=== PATIENT | male | born 1985 | race Caucasian/White ===

== ENCOUNTER 2016-12-16 20:55 | Emergency (ER) | payer OTHER ==
--- NOTE | 2016-12-17 05:21 | ED NURSING NOTES ---
Clinical Report - Nurses [facility] [address] [place] [address] 12/16/2016 20:55 Patient: PHILLIP GAUTAM TRIAGE Triage time 2100. Acuity: LEVEL 2. Chief Complaint: ALTERED MENTAL STATUS and CONFUSED and DISORIENTED and ACTING DIFFERENTLY. --21:19 Chris Schofield R.N. 21:13 12/16/16. BP: 151/85. HR: 118. RR: 20. O2 saturation: 97%. Temp: 98 F. Pain level now 0/10. --21:19 Chris Schofield R.N. BREATHALYZER: Breathalyzer (0.266). --21:55 Chris Schofield R.N. Weight: 68 kg stated. Height/Length: 66 inches Per Patient. BMI: 24.2. --21:18 Chris Schofield R.N. Allergies Nuts. --21:17 Chris Schofield R.N. History Arrived by EMS. Historian: patient. Accompanied by police. This started just prior to arrival. Unknown when patient was last known well. ( pt sent in invol by apd for intoxication in public, disoriented to place and time. unable to care for self. pt is not under arrest). 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 PAST MEDICAL HX: Unknown. SOCIAL HX: Heavy tobacco smoker- 1 pack per day. Heavy alcohol use; consumes a large amount of beer. FALL RISK ASSESSMENT: Fall risk assessment completed. No fall risk identified. NUTRITIONAL RISK ASSESSMENT: The nutritional risk assessment revealed no deficiencies. FUNCTIONAL ASSESSMENT: Functional assessment: no impairments noted. LEARNING NEEDS ASSESSMENT: The learning needs assessment revealed no barriers. SKIN INTEGRITY ASSESSMENT: Skin integrity risk assessment completed. No skin integrity risk identified. --21:19 Chris Schofield R.N. PROBLEMS: Alcohol Intoxication. Immunizations. --21:17 Chris Schofield R.N. Interventions ID band on patient. --21:19 Chris Schofield R.N. PHYSICAL ASSESSMENT GENERAL / NEURO / PSYCH: Alert. Appears in no acute distress. (intoxicated). The patient is disoriented to place, time and situation. Speech within normal limits. Patient appears well-nourished and neat and clean. HEENT: Pupils equal, round and reactive to light. RESPIRATORY: Respirations not labored. Breath sounds within normal limits. CVS: Capillary refill less than 2 seconds. GI / : Abdomen soft and nontender. SKIN: Skin is warm and dry. Normal skin turgor. --21:28 Chris Schofield R.N. NURSING PROGRESS NOTES Patient gowned. Head of bed elevated. Reassurance given. Patient identifiers checked. Side rails up x 2. Bed placed in lowest position. Brakes of bed on. --21:35 Chris Schofield R.N. 22:18 12/16/2016 NICOTINE Topical 21 mg. Applied to the right upper back. Allergies verified and confirmed 5 rights. --22:18 Chris Schofield R.N. Restraint Flowsheet Initial restraint assessment. 1 hour face to face restraint assessment. He has demonstrated behavior including imminent risk of harm to self or others that requires restraints. Alternatives to restraints have been attempted via patient teaching, provision of supervision by 1:1 observation, reality orientation by frequent reminding and redirection of behavior and addressing toileting needs; assessment for possible underlying medical problem. Alternative to restraints failed: patient inability to follow directions and displaying a lack of decision making ability (extremely intoxicated). Applied right and left wrist restraints and right and left ankle restraints. Observed by a nurse. Assessment: airway- patent; circulation- capillary refill is less than 2 seconds; mental status- patient is agitated and confused; skin- intact; behavior is violent. Restraints are properly applied. Interventions: unable to perform interventions at this time due to patient status. Restraint reevaluation: evaluated patient's immediate situation and reaction to intervention. --21:35 Chris Schofield R.N. DISPOSITION / DISCHARGE Departure time: 0530. No learning barriers present. Discharge instructions provided and reviewed with the patient. Reviewed warnings. Treatments reviewed. Reviewed diet. Activity restrictions reviewed. Patient verbalized understanding. Written instructions provided in [place]. The patient was discharged by the physician. He was discharged home and unaccompanied at time of discharge. He left the Emergency Department ambulatory and via bus. 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 ( pt provided 2 bus passes, scrub top and blanket to help facilitate getting home. pt request to "hang out until i can buy beer" refused and pt left premesis.). --05:53 Chris Schofield R.N. 05:51 12/17/16. BP: 144/88. HR: 88. RR: 18. O2 saturation: 0%. Temp: 98 F. --05:53 Chris Schofield R.N. 05:54 12/17/16. Pain level now 0/10. --05:54 Chris Schofield R.N. ( pt placed in locked 4point restraints upon arrival with ems/apd r/t pt violent on scene and en route from point of origin. order for restraints received from MD. upon MD initial eval within 1 hour of arrival restraints changed to seclusion only and hard/locking restraints removed at that time. trial successful and pt stayed in seclusion only until discharge.). --06:01 Chris Schofield R.N. Locked/Released at 12/17/2016 6:01 by Chris Schofield R.N.
--- NOTE | 2016-12-17 05:21 | ED NURSING NOTES ---
Clinical Report - Nurses [facility] [address] [place] [address] 12/16/2016 20:55 Patient: PHILLIP GAUTAM TRIAGE Triage time 2100. Acuity: LEVEL 2. Chief Complaint: ALTERED MENTAL STATUS and CONFUSED and DISORIENTED and ACTING DIFFERENTLY. --21:19 Chris Schofield R.N. 21:13 12/16/16. BP: 151/85. HR: 118. RR: 20. O2 saturation: 97%. Temp: 98 F. Pain level now 0/10. --21:19 Chris Schofield R.N. BREATHALYZER: Breathalyzer (0.266). --21:55 Chris Schofield R.N. Weight: 68 kg stated. Height/Length: 66 inches Per Patient. BMI: 24.2. --21:18 Chris Schofield R.N. Allergies Nuts. --21:17 Chris Schofield R.N. History Arrived by EMS. Historian: patient. Accompanied by police. This started just prior to arrival. Unknown when patient was last known well. ( pt sent in invol by apd for intoxication in public, disoriented to place and time. unable to care for self. pt is not under arrest). 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 PAST MEDICAL HX: Unknown. SOCIAL HX: Heavy tobacco smoker- 1 pack per day. Heavy alcohol use; consumes a large amount of beer. FALL RISK ASSESSMENT: Fall risk assessment completed. No fall risk identified. NUTRITIONAL RISK ASSESSMENT: The nutritional risk assessment revealed no deficiencies. FUNCTIONAL ASSESSMENT: Functional assessment: no impairments noted. LEARNING NEEDS ASSESSMENT: The learning needs assessment revealed no barriers. SKIN INTEGRITY ASSESSMENT: Skin integrity risk assessment completed. No skin integrity risk identified. --21:19 Chris Schofield R.N. PROBLEMS: Alcohol Intoxication. Immunizations. --21:17 Chris Schofield R.N. Interventions ID band on patient. --21:19 Chris Schofield R.N. PHYSICAL ASSESSMENT GENERAL / NEURO / PSYCH: Alert. Appears in no acute distress. (intoxicated). The patient is disoriented to place, time and situation. Speech within normal limits. Patient appears well-nourished and neat and clean. HEENT: Pupils equal, round and reactive to light. RESPIRATORY: Respirations not labored. Breath sounds within normal limits. CVS: Capillary refill less than 2 seconds. GI / : Abdomen soft and nontender. SKIN: Skin is warm and dry. Normal skin turgor. --21:28 Chris Schofield R.N. NURSING PROGRESS NOTES Patient gowned. Head of bed elevated. Reassurance given. Patient identifiers checked. Side rails up x 2. Bed placed in lowest position. Brakes of bed on. --21:35 Chris Schofield R.N. 22:18 12/16/2016 NICOTINE Topical 21 mg. Applied to the right upper back. Allergies verified and confirmed 5 rights. --22:18 Chris Schofield R.N. Restraint Flowsheet Initial restraint assessment. 1 hour face to face restraint assessment. He has demonstrated behavior including imminent risk of harm to self or others that requires restraints. Alternatives to restraints have been attempted via patient teaching, provision of supervision by 1:1 observation, reality orientation by frequent reminding and redirection of behavior and addressing toileting needs; assessment for possible underlying medical problem. Alternative to restraints failed: patient inability to follow directions and displaying a lack of decision making ability (extremely intoxicated). Applied right and left wrist restraints and right and left ankle restraints. Observed by a nurse. Assessment: airway- patent; circulation- capillary refill is less than 2 seconds; mental status- patient is agitated and confused; skin- intact; behavior is violent. Restraints are properly applied. Interventions: unable to perform interventions at this time due to patient status. Restraint reevaluation: evaluated patient's immediate situation and reaction to intervention. --21:35 Chris Schofield R.N. DISPOSITION / DISCHARGE Departure time: 0530. No learning barriers present. Discharge instructions provided and reviewed with the patient. Reviewed warnings. Treatments reviewed. Reviewed diet. Activity restrictions reviewed. Patient verbalized understanding. Written instructions provided in [place]. The patient was discharged by the physician. He was discharged home and unaccompanied at time of discharge. He left the Emergency Department ambulatory and via bus. 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 ( pt provided 2 bus passes, scrub top and blanket to help facilitate getting home. pt request to "hang out until i can buy beer" refused and pt left premesis.). --05:53 Chris Schofield R.N. 05:51 12/17/16. BP: 144/88. HR: 88. RR: 18. O2 saturation: 0%. Temp: 98 F. --05:53 Chris Schofield R.N. 05:54 12/17/16. Pain level now 0/10. --05:54 Chris Schofield R.N. ( pt placed in locked 4point restraints upon arrival with ems/apd r/t pt violent on scene and en route from point of origin. order for restraints received from MD. upon MD initial eval within 1 hour of arrival restraints changed to seclusion only and hard/locking restraints removed at that time. trial successful and pt stayed in seclusion only until discharge.). --06:01 Chris Schofield R.N. Locked/Released at 12/17/2016 6:01 by Chris Schofield R.N.
--- NOTE | 2016-12-17 05:21 | ED ORDER SUMMARY ---
..... Patient: PHILLIP GAUTAM OrderSheet [facility] VisitID: [id number] [address] [place] [address] 31y, M Registration Date/Time: 12/16/2016 ORDER SHEET Weight: 68.0 kg (stated) Allergies: Nuts GENERAL ORDERS: Urine Drug Screen Urgent (21:50 12/16/2016 Iliana Freitas) (Ack 21:54 TBergley) (21:54 Temo R.N.) Breathalyzer (21:50 12/16/2016 Iliana Freitas) (21:54 Temo R.N.) MEDICATION ORDERS: Nicotine Topical 21 mg (NOW) (22:17 12/16/2016 Temo R.N. verbal order read back to Iliana Freitas) (22:18 Temo R.N.) IV FLUIDS: ORDER SHEET NOTES: This document has not been locked and should not be saved in the medical record.
--- NOTE | 2016-12-17 05:21 | ED ORDER SUMMARY ---
..... Patient: PHILLIP GAUTAM OrderSheet [facility] VisitID: [id number] [address] [place] [address] 31y, M Registration Date/Time: 12/16/2016 ORDER SHEET Weight: 68.0 kg (stated) Allergies: Nuts GENERAL ORDERS: Urine Drug Screen Urgent (21:50 12/16/2016 Iliana Freitas) (Ack 21:54 TBergley) (21:54 Temo R.N.) Breathalyzer (21:50 12/16/2016 Iliana Freitas) (21:54 Temo R.N.) MEDICATION ORDERS: Nicotine Topical 21 mg (NOW) (22:17 12/16/2016 Temo R.N. verbal order read back to Iliana Freitas) (22:18 Temo R.N.) IV FLUIDS: ORDER SHEET NOTES: This document has not been locked and should not be saved in the medical record.
--- NOTE | 2016-12-17 05:21 | ED CLINICAL REPORT ---
Clinical Report - Physicians/Mid Levels [facility] [address] [place] [address] 12/16/2016 20:55 Patient: PHILLIP GAUTAM *This is a preliminary document and is subject to change Time Seen: 21:05; initial patient contact. Arrived- Police present. Historian- patient. History limited by intoxication. Physical Exam limited by intoxication. HISTORY OF PRESENT ILLNESS Chief Complaint: AGITATED and BIZARRE BEHAVIOR. Does not want detox. Symptoms started today. Duration of substance abuse- several years. Substances abused: Alcohol. Last drink just prior to arrival. Mentioned to PD that he wanted to kill himself after they picked him up. No seizure, hallucinations or suicidal thoughts. He has been confused and agitated. Has not been depressed. The symptoms are described as severe. No injuries noted. Similar symptoms previously: Several times. Recent medical care: Not recently seen/assessed. REVIEW OF SYSTEMS No headache, difficulty breathing, alteration in mental status, head injury or suicidal thoughts. All systems otherwise negative, except as recorded above. PAST HISTORY Alcoholism. Medications: None. Allergies: Nuts. SOCIAL HISTORY Current every day smoker. Heavy alcohol use. Last drink was just prior to arrival. Patient is a longstanding alcoholic. No drug use. Has place to stay. ADDITIONAL NOTES The nursing notes have been reviewed with agreement regarding the chief complaint, PMH and patient medications and allergies. PHYSICAL EXAM Vital Signs: 12/16/2016 21:13 BP: 151/85. HR: 118. RR: 20. O2 saturation: 97%. Temp: 98 F. Have been reviewed. Hypertensive. Tachycardic. Respiratory rate normal. Temperature normal. Oxygen saturation normal. Appearance: Alert. No acute distress. Alert. The patient's speech is slurred and odor of alcohol is present. Head: Head atraumatic. ENT: Airway intact. Moist mucous membranes. Neck: Normal inspection. CVS: Normal heart rate and rhythm. Heart sounds normal. Respiratory: No respiratory distress. Breath sounds normal. Psych: Oriented X 3. Mood and affect normal. Speech normal. Cognition normal. Thought process and content normal. Insight and judgement normal. (Psych exam after breathalizer .143 and able to hold a conversation. Pt states no suicidal thoughts, states he said it due to him being extremely intoxicated.). LABS, X-RAYS, AND EKG Laboratory Tests: Urine Drug Screen: (FADY: 12/16/2016 21:25) ( MsgRcvd 12/16/2016 22:24) Final results Test Result Flag Units (Reference) AMPHETAMINE/METHAMPHETAMINE NEGATIVE (NEGATIVE) BARBITURATE NEGATIVE (NEGATIVE) BENZODIAZEPINE NEGATIVE (NEGATIVE) CANNABINOID POSITIVE H (NEGATIVE) COCAINE NEGATIVE (NEGATIVE) ECSTASY NEGATIVE (NEGATIVE) METHADONE NEGATIVE (NEGATIVE) OPIATE NEGATIVE (NEGATIVE) The urine drug screen is a qualitative screening test fordrug overdose and abuse. All screen results should beconsidered as presumptive.Drugs screened for are as follows:BenzodiazepinesCocaineAmphetamines/MetamphetaminesTHC (Tetrahydrocannabinol)OpiatesBarbituratesEcstasyMethadonePositive results are unconfirmed. For confirmation, notifythe lab for the specimen to be sent to the reference lab.All confirmations must be performed by a differentmethodology.The ingestion of natural herbal and plant productscontaining Ephedra/Ephedra metabolites can produce in urineone or more substances capable of cross reacting withamphetamine/methamphetamine immunoassays. These testsprovide a preliminary result only. A more specificalternative chemical method must be used to obtain aconfirmed analytical result. . Paul Deleon Dr.
--- NOTE | 2016-12-17 06:01 | ED DISCHARGE INSTRUCTIONS ---
Patient: PHILLIP GAUTAM General Instructions [facility] VisitID: [id number] [address] [place] [address] 31y, M Registration Date/Time: 12/16/2016 Uncomplicated alcohol intoxication with alcohol dependence. INSTRUCTIONS No alcohol. Seek medical help to quit drinking. Follow-up with: [facility], , , [address], , [place], [id number] Follow up in about four. Call for an appointment. ADDITIONAL INFORMATION Alcohol Intoxication Alcohol intoxication occurs when you drink alcohol faster than your liver can remove it from your system. Alcohol intoxication affects your judgment and coordination. Very high blood alcohol levels can cause coma, very slow breathing and even . If you drink alcohol every day, this may gradually cause permanent damage to your liver, brain, heart, pancreas and other organs. Alcohol use during may cause permanent damage to the growing baby. Home Care: Do not drink any more alcohol. DO NOT DRIVE until all effects of the alcohol have worn off. Get lots of rest over the next few days. Drink plenty of water and other non-alcoholic liquids. Try to eat regular meals. If you have been drinking heavily on a daily basis, you may go through alcohol withdrawl. This is also called the shakes or DTs. The usual symptoms last 3 to 4 days and may include nervousness, shakiness, nausea, sweating or sleeplessness. During this time, it is best that you stay with family or friends who can help and support you. You can also admit yourself to a residential detox program. If your symptoms are severe, contact your doctor for medicines to help. Follow Up: If alcohol is causing a problem in your life, these and other organizations can help you: Alcoholics Anonymous offers support through a self-help fellowship. There are no dues or fees. See the Yellow Pages and call for time and place of meetings. www.aa.org [employer] offers support to families of alcohol users. 366.678.8855 www.al-anon.org National [place] On Alcoholism And Drug Dependence 000-989-7962 www.ncadd.org There are also inpatient or residential alcohol detox programs. Check the Internet or phonebook Yellow Pages under Drug Abuse & Treatment Centers. Get Prompt Medical Attention if any of the following occur: there) You have been given the following additional information: Alcohol Intoxication (Electronically signed by Paul Deleon Dr. 12/17/2016 5:44)
--- NOTE | 2016-12-17 06:01 | ED DISCHARGE INSTRUCTIONS ---
Patient: PHILLIP GAUTAM General Instructions [facility] VisitID: [id number] [address] [place] [address] 31y, M Registration Date/Time: 12/16/2016 Uncomplicated alcohol intoxication with alcohol dependence. INSTRUCTIONS No alcohol. Seek medical help to quit drinking. Follow-up with: [facility], , , [address], , [place], [id number] Follow up in about four. Call for an appointment. ADDITIONAL INFORMATION Alcohol Intoxication Alcohol intoxication occurs when you drink alcohol faster than your liver can remove it from your system. Alcohol intoxication affects your judgment and coordination. Very high blood alcohol levels can cause coma, very slow breathing and even . If you drink alcohol every day, this may gradually cause permanent damage to your liver, brain, heart, pancreas and other organs. Alcohol use during may cause permanent damage to the growing baby. Home Care: Do not drink any more alcohol. DO NOT DRIVE until all effects of the alcohol have worn off. Get lots of rest over the next few days. Drink plenty of water and other non-alcoholic liquids. Try to eat regular meals. If you have been drinking heavily on a daily basis, you may go through alcohol withdrawl. This is also called the shakes or DTs. The usual symptoms last 3 to 4 days and may include nervousness, shakiness, nausea, sweating or sleeplessness. During this time, it is best that you stay with family or friends who can help and support you. You can also admit yourself to a residential detox program. If your symptoms are severe, contact your doctor for medicines to help. Follow Up: If alcohol is causing a problem in your life, these and other organizations can help you: Alcoholics Anonymous offers support through a self-help fellowship. There are no dues or fees. See the Yellow Pages and call for time and place of meetings. www.aa.org [employer] offers support to families of alcohol users. 173.807.5806 www.al-anon.org National [place] On Alcoholism And Drug Dependence 785-048-3777 www.ncadd.org There are also inpatient or residential alcohol detox programs. Check the Internet or phonebook Yellow Pages under Drug Abuse & Treatment Centers. Get Prompt Medical Attention if any of the following occur: there) You have been given the following additional information: Alcohol Intoxication (Electronically signed by Paul Deleon Dr. 12/17/2016 5:44)
--- NOTE | 2016-12-17 06:01 | ED MAR SUMMARY ---
..... Medication Administration Record [facility] [address] [place] [address] Patient: PHILLIP GAUTAM Visit ID: [id number] 31y, M Weight: 68.0 kg Height/Length: 66 in BMI: 24.2 ALLERGIES: Nuts Given 22:18 12/16/2016 Chris Schofield R.N. Medication Administered: NICOTINE [TOPICAL], Dose: 21 mg Topical. Medication Ordered: Nicotine Topical 21 mg (NOW).
--- NOTE | 2016-12-17 06:01 | ED MAR SUMMARY ---
..... Medication Administration Record [facility] [address] [place] [address] Patient: PHILLIP GAUTAM Visit ID: [id number] 31y, M Weight: 68.0 kg Height/Length: 66 in BMI: 24.2 ALLERGIES: Nuts Given 22:18 12/16/2016 Chris Schofield R.N. Medication Administered: NICOTINE [TOPICAL], Dose: 21 mg Topical. Medication Ordered: Nicotine Topical 21 mg (NOW).
--- NOTE | 2016-12-17 06:01 | ED MED RECONCILIATION SUMMARY ---
Patient: PHILLIP GAUTAM Medication Reconciliation Report [facility] VisitID: [id number] [address] [place] [place] [address] 31y, M Registration Date/Time: 12/16/2016 Weight: 68.0 kg Height/Length: 66 in. BMI: 24.2 ALLERGIES: Nuts The patient's Home Medications are listed below: NONE. The source(s) of the original Home Medication information: Not obtained. The following Medications were given to the patient in the Emergency Department: NICOTINE [TOPICAL] Topical 21 mg, administered: 12/16/2016 10:18:00 PM The following Medications were prescribed to the patient: None.
--- NOTE | 2016-12-17 06:01 | ED MED RECONCILIATION SUMMARY ---
Patient: PHILLIP GAUTAM Medication Reconciliation Report [facility] VisitID: [id number] [address] [place] [address] 31y, M Registration Date/Time: 12/16/2016 Weight: 68.0 kg Height/Length: 66 in. BMI: 24.2 ALLERGIES: Nuts The patient's Home Medications are listed below: NONE. The source(s) of the original Home Medication information: Not obtained. The following Medications were given to the patient in the Emergency Department: NICOTINE [TOPICAL] Topical 21 mg, administered: 12/16/2016 10:18:00 PM The following Medications were prescribed to the patient: None.
== END 2016-12-17 05:30 | disposition home or self-care (01) ==
LOC: ED SRH 20:55
DX: F10.220 Alcohol dependence with intoxication, uncomplicated (principal); F17.200 Nicotine dependence, unspecified, uncomplicated
CPT/HCPCS: 92760; 92761; 92762; 92763; 92764; 92765; 92766; 92767

== ENCOUNTER 2017-02-12 13:47 | Emergency (ER) | payer OTHER ==
--- NOTE | 2017-02-13 00:31 | ED NURSING NOTES ---
Clinical Report - Nurses [facility] [address] [place] [address] 02/12/2017 13:54 Patient: PHILLIP GAUTAM TRIAGE Triage time 1350. Acuity: LEVEL 3. Chief Complaint: AGITATED / AGGRESSIVE BEHAVIOR (Intoxicated). WENDIE COMA SCORE: Wendie Coma Scale: 15- eyes open spontaneously (4); best verbal response- oriented x 4 (5); best motor response- obeys commands (6). --14:23 Roseline Jin R.N. Weight: 74.8 kg stated. Height/Length: 68 inches Per Patient. BMI: 25.1. --14:21 Roseline Jin R.N. Medications None. --00:46 Kathia Villareal. Allergies Peanuts. --00:46 Kathia Villareal. History Historian: police. Accompanied by police. ( Arrived in [facility]'s custody, on stretcher with EMS. Yelling and screaming on arrival to ED. Involuntary per [facility]'s deputy. Found intoxicated and banging on neighbor's door. Pt screaming on arrival, "I'm going to cut you fucking bitches! I'm going to cut your fucking heads off you bitches." Unable to obtain VS due to patient's behavior and agitation.). 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 RR: 18. --14:23 Roseline Jin R.N. Interventions ID band on patient. To treatment room. --14:23 Roseline Jin R.N. PHYSICAL ASSESSMENT 14:25 02/12/17. To room via stretcher. GENERAL / NEURO / PSYCH: The patient smells of alcohol, appears agitated and is hostile and combative. HEENT: Mucous membranes are pink. RESPIRATORY: Respirations not labored. CVS: Capillary refill less than 2 seconds. SKIN: Skin is warm and dry. --14:25 Roseline Jin R.N. NURSING PROGRESS NOTES The plan of care for this patient has been created. Patient gowned. --14:26 Roseline Jin R.N. 14:06. Patient ID band checked for patient name and birthdate. Catheterized urine collected with return of clear urine; odor is normal; sample sent to lab for urinalysis and drug screen. Specimen labeled in the presence of the patient (diluted, pale, clear urine). --14:28 Roseline Jin R.N. ( patient urinated all over bedding, despite having urinal and throwing urinal. Patient clean up and bath x2 RNs x20 minutes. Pt bedding changed, gown changed, attends placed on patient. Pt agitated and yelling. When placing attends with 2nd RN, patient yelling, "are you guys trying to make a porno?!" Continues to be agitated and yelling, "Nurse! Doctor!"). --15:13 Roseline Jin R.N. ( Pt attempting to flip stretcher, yelling, "I should have cut their fucking heads off!. Ripping attends off. PD called for assistance in tightening restraints that he is attempting to rip off. Attends placed back on patient.). --15:29 Roseline Jin R.N. 15:51 02/12/17. ( Pt able to pull left upper extremity out of restraint and attempting to flip gurney. Security called. Extremity placed back in restraint by this RN, 2nd RN and security. Pt yelling, screaming, threatening staff). --15:51 Roseline Jin R.N. 16:25 02/12/17. --16:25 Roseline Jin R.N. 16:23 02/12/17. BP: 145/99. HR: 105. RR: 24. O2 saturation: 98% on room air. Temp: 98.2 F (oral). --16:25 Roseline Jin R.N. ( Pt states that his mother (Mel [phone]) would be willing to come get him. Called number provided by pt and left voicemail requesting return call.). --16:29 Roseline Jin R.N. 17:00 Patient contact made; patient states "I'm going to go to my neighbors house and burn it down, I'm going to make sure they are in it before I throw fire in the window". --17:07 Debbie Wilson, ER Tech1 17:50 02/12/17. BP: 154/104. HR: 96. RR: 20. O2 saturation: 97% on room air. Additional comments: Patient given gatorade . --17:52 Debbie Wilson, ER Tech1 18:11 02/12/17. ( restraints rotated by this RN, 2nd RN, MD and service technician. pt continues to be agitated. Asking if mom is coming to get him. This RN explained that voicemail was left but I have not received a return call from her. Pt yelling, "That bitch! Why won't she come get me? She's a piece of shit, my family they're all fucking losers."). --18:11 Roseline Jin R.N. 18:38 02/12/17. Patient hygiene performed: received complete bath. Changed patient gown, linens, incontinence pads and diaper. ( Pt removed attends, urinated all over linens and gurney. Pt cleanup x2 RNs and 2 techs. Continues to yell and threaten staff. Stating to 2nd RN, "You're a fucking bitch!"). --18:38 Roseline Jin R.N. Care transferred and report received (Ana RN). --19:17 Kathia Villareal ( Patient mother called per request of patient. Patients mother asked if she would be willing to come to black pickler her son. Patient mother refuses to come pick him up. Patient notified that his mother will not come to the hospital. Patient states, " I am going to punch my mom in the fucking face, just keep calling her and tell her to come here!"). --19:34 Kathia Villareal ( Patient offered PO food and fluids, patient refused at this time.). --19:39 Kathia Villareal 20:19 Breathalyzer 0.17. --20:19 Debbie Wilson, ER Tech1 20:49 Patient continues to yell and scream, using foul language and thrashing around on stretcher. --20:50 Debbie Wilson ER Tech1 ( Patient thrashing and shaking bed. Patient given PO food and fluids, patient takes bite and drinks water then throws water against the wall.). --20:56 Kathia Villareal ( Patient given more PO fluids and blankets). --21:37 Kathia Villareal ( POCT Breathalizyer .134). --21:51 Etta Winston ER Tech1 ( Restraint order renewed per provider. See paper restraint order and flow sheet). --22:04 Kathia Villareal 22:38 Patient resting quietly. --22:39 Debbie Wilson, ER Tech1 23:20 Breathalyzer 0.09. --23:20 Debbie Wilson, ER Tech1 23:20 02/12/17. BP: 143/97. HR: 90. RR: 16. O2 saturation: 95% on room air. --23:20 Debbie Wilson ER Tech1 ( Provider at bedside, patient given more food and fluids.). --23:43 Kathia Villareal ( Patient left arm restraint released per provider request). --23:43 Kathia Villareal 00:30 02/13/17. ( Restraints discontinued per provider request, patient alcohol within normal limits, patient cooperative and patients belongings returned to him.). --00:35 Kathia Villareal. DISPOSITION / DISCHARGE 00:37 02/13/17. Condition at departure: stable. The goals identified in the patient's plan of care were met. Learning barriers present. Ability to learn limited by poor cooperation. Written instructions provided in Maldivian. ( Patient states he does not want discharge paperwork. Patient willing to sign paperwork and perform walk test prior to discharge. Patient able to ambulate safely). The patient was discharged by the physician. He was discharged home and unaccompanied at time of discharge. He left the Emergency Department ambulatory and via bus. FALL RISK ASSESSMENT: Fall risk assessment completed. No fall risk identified. --00:37 Kathia Villareal 00:35 02/13/17. HR: deferred. RR: deferred. O2 saturation: deferred. Temp: deferred. Pain level now deferred. Additional comments: Patient refuses to have discharge vitals. --00:37 Kathia Villareal. Locked/Released at 02/13/2017 0:46 by Kathia Villareal,
--- NOTE | 2017-02-13 00:31 | ED ORDER SUMMARY ---
..... Patient: PHILLIP GAUTAM OrderSheet [facility] VisitID: [id number] [address] [place] [address] 31y, M Registration Date/Time: 02/12/2017 ORDER SHEET Weight: 74.8 kg (stated) Allergies: Peanuts GENERAL ORDERS: CBC w Diff Urgent (14:30 02/12/2017 Luis JEAN) (14:39 KWilliams R.N.) CMP Urgent (14:30 02/12/2017 Luis JEAN) (14:39 KWilliams R.N.) UA-Culture if indicated Urgent (14:30 02/12/2017 Luis JEAN) (14:30 KWilliams R.N.) Amylase Urgent (14:30 02/12/2017 Luis JEAN) (14:39 KWilliams R.N.) Lipase Urgent (14:30 02/12/2017 Luis JEAN) (14:47 ALawrence ER Tech1) (Ack 14:49 RKaruga) Urine Drug Screen Urgent (14:30 02/12/2017 Luis JEAN) (14:30 KWilliams R.N.) Ethyl Alcohol Urgent (14:30 02/12/2017 Luis JEAN) (14:39 KWilliams R.N.) MEDICATION ORDERS: IV FLUIDS: ORDER SHEET NOTES: [Electronically signed by Stefan Verde Dr. (00:39 02/13/2017)] [Electronically signed by Kathia Villareal (00:46 02/13/2017)] [Electronically signed by Geronimo Clark MD (10:12 02/13/2017)] [Electronically locked/signed by Kathia Villareal (00:46 02/13/2017)]
--- NOTE | 2017-02-13 00:31 | ED ORDER SUMMARY ---
..... Patient: PHILLIP GAUTAM OrderSheet [facility] VisitID: [id number] [address] [place] [address] 31y, M Registration Date/Time: 02/12/2017 ORDER SHEET Weight: 74.8 kg (stated) Allergies: Peanuts GENERAL ORDERS: CBC w Diff Urgent (14:30 02/12/2017 Luis JEAN) (14:39 KWilliams R.N.) CMP Urgent (14:30 02/12/2017 Luis JEAN) (14:39 KWilliams R.N.) UA-Culture if indicated Urgent (14:30 02/12/2017 Luis JEAN) (14:30 KWilliams R.N.) Amylase Urgent (14:30 02/12/2017 Luis JEAN) (14:39 KWilliams R.N.) Lipase Urgent (14:30 02/12/2017 Luis JEAN) (14:47 ALawrence ER Tech1) (Ack 14:49 RKaruga) Urine Drug Screen Urgent (14:30 02/12/2017 Luis JEAN) (14:30 KWilliams R.N.) Ethyl Alcohol Urgent (14:30 02/12/2017 Luis JEAN) (14:39 KWilliams R.N.) MEDICATION ORDERS: IV FLUIDS: ORDER SHEET NOTES: [Electronically signed by Stefan Verde Dr. (00:39 02/13/2017)] [Electronically signed by Kathia Villareal (00:46 02/13/2017)] [Electronically signed by Geronimo Clark MD (10:12 02/13/2017)] [Electronically locked/signed by Kathia Villareal (00:46 02/13/2017)]
--- NOTE | 2017-02-13 00:31 | ED CLINICAL REPORT ---
Clinical Report - Physicians/Mid Levels [facility] [address], [place] [address] 02/12/2017 13:54 Patient: PHILLIP GAUTAM Time Seen: 14:29. Arrived- By ambulance. Historian- patient and EMS personnel. History limited by poor cooperation, vague historian and intoxication. Physical Exam limited by intoxication, agitation and combativeness. HISTORY OF PRESENT ILLNESS Chief Complaint: INTOXICATED. Unknown as to when symptoms started. Substances abused: Last drink just prior to arrival. He is under influence in ED. patient apparently was on the porch of a neighbor and was screaming and saying threatening things. He was contacted and continued to be belligerent he was therefore brought in by EMS. He alleges that he has been drinking says he had "a fifth" of whiskey today. He also says that he smokes marijuana on a daily basis. As staff were drawing blood from him he also stated "you may find some acid or methamphetamines in there.". The patient has been severely agitated. REVIEW OF SYSTEMS Unobtainable due to patient's uncooperativeness. PAST HISTORY Problems: Alcohol Intoxication. SOCIAL HISTORY Regular heavy alcohol use. Under the influence in E.D. History of drug use: marijuana. FAMILY HISTORY Unable to obtain family medical history (uncooperative). ADDITIONAL NOTES The nursing notes have been reviewed. PHYSICAL EXAM Vital Signs: 02/12/2017 16:23 BP: 145/99. HR: 105. RR: 24. O2 saturation: 98%. Temp: 98.2 F. Have been reviewed. Appearance: Alert. He appears intoxicated, hostile and agitated and has ETOH on breath. He is restless and combative and appears unkempt. Head: Head atraumatic. Eyes: Pupils equal, round and reactive to light. ENT: Airway intact. Moist mucous membranes. Neck: Normal inspection. Neck supple. CVS: Normal heart rate and rhythm. Heart sounds normal. Respiratory: No respiratory distress. Breath sounds normal. Abdomen: Soft and nontender. No organomegaly. Back: Normal inspection. Skin: Skin warm and dry. Normal skin color. No rash. Normal skin turgor. Extremities: Extremities exhibit normal ROM. No calf tenderness. No lower extremity edema. Neuro: Alert. Severely altered mental status: labile, hostile and combative. Cranial nerves normal (as tested). No motor deficit. LABS, X-RAYS, AND EKG Laboratory Tests: UA-Culture if indicated: (FADY: 02/12/2017 14:06) ( [facility] 02/12/2017 14:53) Final results Test Result Flag Units (Reference) URINE COLOR STRAW URINE APPEARANCE CLEAR URINE GLUCOSE NEGATIVE (NEGATIVE) URINE BILIRUBIN NEGATIVE (NEGATIVE) URINE KETONE NEGATIVE (NEGATIVE) URINE SPECIFIC GRAVITY <= 1.005 L (1.010-1.030) URINE PH 6.0 (5.0-8.0) URINE PROTEIN NEGATIVE (NEGATIVE) URINE UROBILINOGEN 0.2 EU/dL (0.2-1.0) URINE NITRITE NEGATIVE (NEGATIVE) URINE BLOOD NEGATIVE (NEGATIVE) URINE LEUK ESTERASE NEGATIVE (NEGATIVE) URINE RBC NONE SEEN rbc/hpf (0-1) URINE WBC RARE wbc/hpf (0-1) URINE EPITHELIAL CELLS RARE EPI/hpf (0-5) URINE BACTERIA NONE SEEN (NONE SEEN) URINE COMMENT CULT NOT INDICATED URINE CULTURES ARE SET-UP BASED ON THE FOLLOWING CRITERIA:POSITIVE NITRITEPOSITIVE LEUKOCYTE ESTERASEGREATER THAN 10 WHITE BLOOD CELLSMODERATE (2+) OR GREATER BACTERIA CBC w Diff: (FADY: 02/12/2017 14:37) ( [facility] 02/12/2017 14:54) Final results Test Result Flag Units (Reference) WHITE BLOOD COUNT 10.6 K/uL (4.5-11.5) RED BLOOD COUNT 4.92 M/uL (4.50-5.90) HEMOGLOBIN 16.5 gm/dL (13.5-17.5) HEMATOCRIT 48.4 % (41.0-53.0) MEAN CELL VOLUME 98 fL (80-100) MEAN CORPUSCULAR HGB 34 pg (26-34) MEAN CORPUSCULAR HGB CONC 34 g/dL (31-37) RED CELL DISTRIBUTION WIDTH 13.8 % (11.6-14.8) PLATELET COUNT 317 K/uL (150-400) NEUTROPHIL % 56.9 % (50-75) LYMPH % 36.2 % (25-40) MONO % 5.5 % (3-14) EOSINOPHIL % 1.0 % (0-4) BASOPHIL % 0.4 % (0-2) Urine Drug Screen: (FADY: 02/12/2017 14:06) ( [facility] 02/12/2017 15:03) Final results Test Result Flag Units (Reference) AMPHETAMINE/METHAMPHETAMINE NEGATIVE (NEGATIVE) BARBITURATE NEGATIVE (NEGATIVE) BENZODIAZEPINE NEGATIVE (NEGATIVE) CANNABINOID POSITIVE H (NEGATIVE) COCAINE NEGATIVE (NEGATIVE) ECSTASY NEGATIVE (NEGATIVE) METHADONE NEGATIVE (NEGATIVE) OPIATE NEGATIVE (NEGATIVE) The urine drug screen is a qualitative screening test fordrug overdose and abuse. All screen results should beconsidered as presumptive.Drugs screened for are as follows:BenzodiazepinesCocaineAmphetamines/MetamphetaminesTHC (Tetrahydrocannabinol)OpiatesBarbituratesEcstasyMethadonePositive results are unconfirmed. For confirmation, notifythe lab for the specimen to be sent to the reference lab.All confirmations must be performed by a differentmethodology.The ingestion of natural herbal and plant productscontaining Ephedra/Ephedra metabolites can produce in urineone or more substances capable of cross reacting withamphetamine/methamphetamine immunoassays. These testsprovide a preliminary result only. A more specificalternative chemical method must be used to obtain aconfirmed analytical result. CMP: (FADY: 02/12/2017 14:37) ( [facility] 02/12/2017 15:18) Final results Test Result Flag Units (Reference) GLUCOSE 86 mg/dL (70-110) BUN 10 mg/dL (7-18) CREATININE 0.9 mg/dL (0.6-1.3) Estimated GFR >60 mL/min Estimated GFR- >60 mL/min Note: Persistent reduction over 3 months in eGFR<60 mL/min/1.73 m2 defines CKD. Patients with eGFR values>=60 mL/min/1.73 m2 may also have CKD if evidence ofpersistent proteinuria. Additional information may be foundat www.kidney.org. SODIUM 145 mmol/L (136-145) POTASSIUM 3.8 mmol/L (3.5-5.1) CHLORIDE 109 H mmol/L (98-107) CARBON DIOXIDE 18 L mmol/L (21-32) CALCIUM 8.9 mg/dL (8.5-10.1) TOTAL PROTEIN 7.6 g/dL (6.4-8.2) ALBUMIN 4.3 g/dL (3.3-5.0) BILIRUBIN, TOTAL 0.2 mg/dL (0.0-1.0) ALKALINE PHOSPHATASE 83 U/L (46-116) AST (SGOT) 26 U/L (15-37) ALT (SGPT) 28 U/L (12-78) LIPASE 159 U/L (73-393) AMYLASE 49 U/L (25-115) ETHYL ALCOHOL 348 H mg/dL (3-10) . PROGRESS AND PROCEDURES Course of Care: 21:07 02/12/17. the case was discussed with Dr. Gray at change of shift.. We reviewed the patient's history and physical examination findings as well as the results of his studies. He will follow-up with the patient and arrange an appropriate disposition for him. - Dr. Gray reports that he continued to observe the patient for several hours. The patient sobered up. They were able to remove his restraints. The patient reported to him that he was "an idiot" for his behavior and apologized. Apparently, he denied any malice or intention to bring arm to himself or others. He was subsequently discharged by Dr. Gray. - . Patient is stable. Old medical records reviewed. Disposition: Discharged. Condition: stable. CLINICAL IMPRESSION Substance abuse- alcohol. Alcohol intoxication. INSTRUCTIONS Stay with responsible adult family member (or other responsible adult). No alcohol. Seek medical help to quit drinking. Warnings: GENERAL WARNINGS: Return or contact your physician immediately if your condition worsens or changes unexpectedly, if not improving as expected, or if other problems arise. Follow-up: Follow up with your doctor. Call for the next available appointment. Understanding of the discharge instructions verbalized by patient. (Electronically signed by Geronimo Clark MD 02/13/2017 10:12) Time Seen: 1430. Arrived- By private vehicle. Historian- patient. HISTORY OF PRESENT ILLNESS Chief Complaint: INTOXICATED. Unknown as to when symptoms started. Duration of substance abuse- unknown. Substances abused: Last drink just prior to arrival. The patient has been agitated. Not paranoid. No hallucinations or suicidal thoughts. Has not been depressed. The symptoms are described as moderate. Injuries noted. No recent fall. Not assaulted. Similar symptoms previously: Many times. Recent medical care: Not recently seen/assessed. REVIEW OF SYSTEMS No headache, weakness, chest pain, black stools or numbness. No bloody stools, sore throat, difficulty breathing or skin abscess. All systems otherwise negative, except as recorded above. PAST HISTORY See nurses notes. SOCIAL HISTORY Smoker- current status unknown. Alcohol use. History of drug use. Has social support. Has place to stay. FAMILY HISTORY History of psychiatric problems (unknown). Negative. ADDITIONAL NOTES The nursing notes have been reviewed. PHYSICAL EXAM Vital Signs: 02/12/2017 16:23 BP: 145/99. HR: 105. RR: 24. O2 saturation: 98%. Temp: 98.2 F. Appearance: Alert. Oriented X3. The patient is agitated and odor of alcohol is present. (in 4 point restraints). Head: Head atraumatic. Eyes: Pupils equal, round and reactive to light. ENT: Normal ENT inspection. Airway intact. Moist mucous membranes. Pharynx normal. Neck: Normal inspection. Neck supple. CVS: Normal heart rate and rhythm. Heart sounds normal. Pulses normal. Respiratory: No respiratory distress. Breath sounds normal. Abdomen: Soft and nontender. No organomegaly. Skin: Skin warm and dry. Normal skin color. No rash. Normal skin turgor. Extremities: Extremities exhibit normal ROM. No lower extremity edema. Neuro: Alert. Oriented X 3. Altered mental status. Cranial nerves normal (as tested). No cerebellar findings. No motor deficit. No sensory deficit. Reflexes normal. (agitated. screaming staff people's names.). LABS, X-RAYS, AND EKG Laboratory Tests: UA-Culture if indicated: (FADY: 02/12/2017 14:06) ( [facility] 02/12/2017 14:53) Final results Test Result Flag Units (Reference) URINE COLOR STRAW URINE APPEARANCE CLEAR URINE GLUCOSE NEGATIVE (NEGATIVE) URINE BILIRUBIN NEGATIVE (NEGATIVE) URINE KETONE NEGATIVE (NEGATIVE) URINE SPECIFIC GRAVITY <= 1.005 L (1.010-1.030) URINE PH 6.0 (5.0-8.0) URINE PROTEIN NEGATIVE (NEGATIVE) URINE UROBILINOGEN 0.2 EU/dL (0.2-1.0) URINE NITRITE NEGATIVE (NEGATIVE) URINE BLOOD NEGATIVE (NEGATIVE) URINE LEUK ESTERASE NEGATIVE (NEGATIVE) URINE RBC NONE SEEN rbc/hpf (0-1) URINE WBC RARE wbc/hpf (0-1) URINE EPITHELIAL CELLS RARE EPI/hpf (0-5) URINE BACTERIA NONE SEEN (NONE SEEN) URINE COMMENT CULT NOT INDICATED URINE CULTURES ARE SET-UP BASED ON THE FOLLOWING CRITERIA:POSITIVE NITRITEPOSITIVE LEUKOCYTE ESTERASEGREATER THAN 10 WHITE BLOOD CELLSMODERATE (2+) OR GREATER BACTERIA CBC w Diff: (FADY: 02/12/2017 14:37) ( [facility] 02/12/2017 14:54) Final results Test Result Flag Units (Reference) WHITE BLOOD COUNT 10.6 K/uL (4.5-11.5) RED BLOOD COUNT 4.92 M/uL (4.50-5.90) HEMOGLOBIN 16.5 gm/dL (13.5-17.5) HEMATOCRIT 48.4 % (41.0-53.0) MEAN CELL VOLUME 98 fL (80-100) MEAN CORPUSCULAR HGB 34 pg (26-34) MEAN CORPUSCULAR HGB CONC 34 g/dL (31-37) RED CELL DISTRIBUTION WIDTH 13.8 % (11.6-14.8) PLATELET COUNT 317 K/uL (150-400) NEUTROPHIL % 56.9 % (50-75) LYMPH % 36.2 % (25-40) MONO % 5.5 % (3-14) EOSINOPHIL % 1.0 % (0-4) BASOPHIL % 0.4 % (0-2) Urine Drug Screen: (FADY: 02/12/2017 14:06) ( [facility] 02/12/2017 15:03) Final results Test Result Flag Units (Reference) AMPHETAMINE/METHAMPHETAMINE NEGATIVE (NEGATIVE) BARBITURATE NEGATIVE (NEGATIVE) BENZODIAZEPINE NEGATIVE (NEGATIVE) CANNABINOID POSITIVE H (NEGATIVE) COCAINE NEGATIVE (NEGATIVE) ECSTASY NEGATIVE (NEGATIVE) METHADONE NEGATIVE (NEGATIVE) OPIATE NEGATIVE (NEGATIVE) The urine drug screen is a qualitative screening test fordrug overdose and abuse. All screen results should beconsidered as presumptive.Drugs screened for are as follows:BenzodiazepinesCocaineAmphetamines/MetamphetaminesTHC (Tetrahydrocannabinol)OpiatesBarbituratesEcstasyMethadonePositive results are unconfirmed. For confirmation, notifythe lab for the specimen to be sent to the reference lab.All confirmations must be performed by a differentmethodology.The ingestion of natural herbal and plant productscontaining Ephedra/Ephedra metabolites can produce in urineone or more substances capable of cross reacting withamphetamine/methamphetamine immunoassays. These testsprovide a preliminary result only. A more specificalternative chemical method must be used to obtain aconfirmed analytical result. CMP: (FADY: 02/12/2017 14:37) ( [facility]sg[facility]cv[facility] 02/12/2017 15:18) Final results Test Result Flag Units (Reference) GLUCOSE 86 mg/dL (70-110) BUN 10 mg/dL (7-18) CREATININE 0.9 mg/dL (0.6-1.3) Estimated GFR >60 mL/min Estimated GFR- >60 mL/min Note: Persistent reduction over 3 months in eGFR<60 mL/min/1.73 m2 defines CKD. Patients with eGFR values>=60 mL/min/1.73 m2 may also have CKD if evidence ofpersistent proteinuria. Additional information may be foundat www.kidney.org. SODIUM 145 mmol/L (136-145) POTASSIUM 3.8 mmol/L (3.5-5.1) CHLORIDE 109 H mmol/L (98-107) CARBON DIOXIDE 18 L mmol/L (21-32) CALCIUM 8.9 mg/dL (8.5-10.1) TOTAL PROTEIN 7.6 g/dL (6.4-8.2) ALBUMIN 4.3 g/dL (3.3-5.0) BILIRUBIN, TOTAL 0.2 mg/dL (0.0-1.0) ALKALINE PHOSPHATASE 83 U/L (46-116) AST (SGOT) 26 U/L (15-37) ALT (SGPT) 28 U/L (12-78) LIPASE 159 U/L (73-393) AMYLASE 49 U/L (25-115) ETHYL ALCOHOL 348 H mg/dL (3-10) . PROGRESS AND PROCEDURES Course of Care: the patient is a 31-year-old male with past medical history is negative for alcohol abuse presenting for evaluation of altered mental status. Patient apparently was being aggressive to neighbors. Patient was monitored in the emergency departments with an elevated blood alcohol level. Patient was initially seen by the ongoing physician. Patient has been monitored in the psychiatric room in bed 16. Patient did needed 4 point restraints. Aggressive behaviors likely substance-induced. We'll monitor patient and revisitthe need for restraints on a as-needed basis. Procedure needed for escalating behavior and protection of staff as well as the patient's own safety. No pain or injury noted anywhere on examination or reportedly from the patient. Patient was reevaluated and found to be clinically sober. Had discussion with patient in regards to what it happened earlier today. Patient reports she does not know what happened. The patient was questioned regards tobehavior on neighbor's property. The patient reports that she wanted to "hang out "with one of the neighbors however the person he wanted to hang out with was not thereand somebody else was. Patient voiced homicidal or suicidal ideations. Patient reports that he does not have any money at this point in time and cannot drink anymore because of this. Patient reports that he willbe on his best behavior and return home. Patient is able to tolerate by mouth. Patient is eating a sandwich and a juice. Patient is steady on his feet. No slurred speech. Patient is not a danger to self or others. No homicidal or suicidal ideation or hallucinations/delusions. I discussed with patient his workup here in the emergency department including diagnosis, home care, follow-up, and return precautions. All questions have been answered. The patient expressed understanding of these instructions and was agreeable to them. Disposition: Discharged. Condition: good. CLINICAL IMPRESSION Adjustment disorder with disturbance of conduct (acute). Alcohol intoxication (acute). INSTRUCTIONS Warnings: GENERAL WARNINGS: Return or contact your physician immediately if your condition worsens or changes unexpectedly, if not improving as expected, or if other problems arise. Specifically return if pain, vomiting, bleeding, breathing difficulty or fever. Prescription Medications: Zofran (orally disintegrating tablets) 4 mg: take 1 orally. Dispense ten (10). No refill. Substitution is permissible. Follow-up: Return to the emergency department as needed. Follow up with your doctor in three days. Reason for referral: recheck today's concerns. Summary of care provided to patient via paper. Screening today revealed the patient's blood pressure to be in the normal range. The patient should follow up with a primary care provider for blood pressure management. Understanding of the discharge instructions verbalized by patient. (Electronically signed by Stefan Verde Dr. 02/13/2017 0:39)
--- NOTE | 2017-02-13 00:31 | ED NURSING NOTES ---
Clinical Report - Nurses [facility] [address] [place] [address] 02/12/2017 13:54 Patient: PHILLIP GAUTAM TRIAGE Triage time 1350. Acuity: LEVEL 3. Chief Complaint: AGITATED / AGGRESSIVE BEHAVIOR (Intoxicated). WENDIE COMA SCORE: Wendie Coma Scale: 15- eyes open spontaneously (4); best verbal response- oriented x 4 (5); best motor response- obeys commands (6). --14:23 Roseline Jin R.N. Weight: 74.8 kg stated. Height/Length: 68 inches Per Patient. BMI: 25.1. --14:21 Roseline Jin R.N. Medications None. --00:46 Kathia Villareal. Allergies Peanuts. --00:46 Kathia Villareal. History Historian: police. Accompanied by police. ( Arrived in [facility]'s custody, on stretcher with EMS. Yelling and screaming on arrival to ED. Involuntary per [facility]'s deputy. Found intoxicated and banging on neighbor's door. Pt screaming on arrival, "I'm going to cut you fucking bitches! I'm going to cut your fucking heads off you bitches." Unable to obtain VS due to patient's behavior and agitation.). Treatment CENTRAL SCHEDULER: HR: 86. RR: 18. --14:23 Roseline Jin R.N. Interventions ID band on patient. To treatment room. --14:23 Roseline Jin R.N. PHYSICAL ASSESSMENT 14:25 02/12/17. To room via stretcher. GENERAL / NEURO / PSYCH: The patient smells of alcohol, appears agitated and is hostile and combative. HEENT: Mucous membranes are pink. RESPIRATORY: Respirations not labored. CVS: Capillary refill less than 2 seconds. SKIN: Skin is warm and dry. --14:25 Roseline Jin R.N. NURSING PROGRESS NOTES The plan of care for this patient has been created. Patient gowned. --14:26 Roseline Jin R.N. 14:06. Patient ID band checked for patient name and birthdate. Catheterized urine collected with return of clear urine; odor is normal; sample sent to lab for urinalysis and drug screen. Specimen labeled in the presence of the patient (diluted, pale, clear urine). --14:28 Roseline Jin R.N. ( patient urinated all over bedding, despite having urinal and throwing urinal. Patient clean up and bath x2 RNs x20 minutes. Pt bedding changed, gown changed, attends placed on patient. Pt agitated and yelling. When placing attends with 2nd RN, patient yelling, "are you guys trying to make a porno?!" Continues to be agitated and yelling, "Nurse! Doctor!"). --15:13 Roseline Jin R.N. ( Pt attempting to flip stretcher, yelling, "I should have cut their fucking heads off!. Ripping attends off. PD called for assistance in tightening restraints that he is attempting to rip off. Attends placed back on patient.). --15:29 Roseline Jin R.N. 15:51 02/12/17. ( Pt able to pull left upper extremity out of restraint and attempting to flip gurney. Security called. Extremity placed back in restraint by this RN, 2nd RN and security. Pt yelling, screaming, threatening staff). --15:51 Roseline Jin R.N. 16:25 02/12/17. --16:25 Roseline Jin R.N. 16:23 02/12/17. BP: 145/99. HR: 105. RR: 24. O2 saturation: 98% on room air. Temp: 98.2 F (oral). --16:25 Roseline Jin R.N. ( Pt states that his mother (Mel [phone]) would be willing to come get him. Called number provided by pt and left voicemail requesting return call.). --16:29 Roseline Jin R.N. 17:00 Patient contact made; patient states "I'm going to go to my neighbors house and burn it down, I'm going to make sure they are in it before I throw fire in the window". --17:07 Debbie Wilson, ER Tech1 17:50 02/12/17. BP: 154/104. HR: 96. RR: 20. O2 saturation: 97% on room air. Additional comments: Patient given gatorade . --17:52 Debbie Wilson, ER Tech1 18:11 02/12/17. ( restraints rotated by this RN, 2nd RN, MD and pharmaceutical laboratory technician. pt continues to be agitated. Asking if mom is coming to get him. This RN explained that voicemail was left but I have not received a return call from her. Pt yelling, "That bitch! Why won't she come get me? She's a piece of shit, my family they're all fucking losers."). --18:11 Roseline Jin R.N. 18:38 02/12/17. Patient hygiene performed: received complete bath. Changed patient gown, linens, incontinence pads and diaper. ( Pt removed attends, urinated all over linens and gurney. Pt cleanup x2 RNs and 2 techs. Continues to yell and threaten staff. Stating to 2nd RN, "You're a fucking bitch!"). --18:38 Roseline Jin R.N. Care transferred and report received (Ana RN). --19:17 Kathia Villareal ( Patient mother called per request of patient. Patients mother asked if she would be willing to come to cigar packer and picker her son. Patient mother refuses to come pick him up. Patient notified that his mother will not come to the hospital. Patient states, " I am going to punch my mom in the fucking face, just keep calling her and tell her to come here!"). --19:34 Kathia Villareal ( Patient offered PO food and fluids, patient refused at this time.). --19:39 Kathia Villareal 20:19 Breathalyzer 0.17. --20:19 Debbie Wilson, ER Tech1 20:49 Patient continues to yell and scream, using foul language and thrashing around on stretcher. --20:50 Debbie Wilson ER Tech1 ( Patient thrashing and shaking bed. Patient given PO food and fluids, patient takes bite and drinks water then throws water against the wall.). --20:56 Kathia Villareal ( Patient given more PO fluids and blankets). --21:37 Kathia Villareal ( POCT Breathalizyer .134). --21:51 Etta Winston ER Tech1 ( Restraint order renewed per provider. See paper restraint order and flow sheet). --22:04 Kathia Villareal 22:38 Patient resting quietly. --22:39 Debbie Wilson, ER Tech1 23:20 Breathalyzer 0.09. --23:20 Debbie Wilson, ER Tech1 23:20 02/12/17. BP: 143/97. HR: 90. RR: 16. O2 saturation: 95% on room air. --23:20 Debbie Wilson ER Tech1 ( Provider at bedside, patient given more food and fluids.). --23:43 Kathia Villareal ( Patient left arm restraint released per provider request). --23:43 Kathia Villareal 00:30 02/13/17. ( Restraints discontinued per provider request, patient alcohol within normal limits, patient cooperative and patients belongings returned to him.). --00:35 Kathia Villareal. DISPOSITION / DISCHARGE 00:37 02/13/17. Condition at departure: stable. The goals identified in the patient's plan of care were met. Learning barriers present. Ability to learn limited by poor cooperation. Written instructions provided in Angolan. ( Patient states he does not want discharge paperwork. Patient willing to sign paperwork and perform walk test prior to discharge. Patient able to ambulate safely). The patient was discharged by the physician. He was discharged home and unaccompanied at time of discharge. He left the Emergency Department ambulatory and via bus. FALL RISK ASSESSMENT: Fall risk assessment completed. No fall risk identified. --00:37 Kathia Villareal 00:35 02/13/17. HR: deferred. RR: deferred. O2 saturation: deferred. Temp: deferred. Pain level now deferred. Additional comments: Patient refuses to have discharge vitals. --00:37 Kathia Villareal. Locked/Released at 02/13/2017 0:46 by Kathia Villareal,
--- NOTE | 2017-02-13 10:13 | ED MAR SUMMARY ---
..... Medication Administration Record [facility] [address], [place] [id number] Patient: PIHLLIP GAUTAM Visit ID: [id number] 31y, M Weight: 74.8 kg Height/Length: 68 in BMI: 25.1 ALLERGIES: Peanuts
--- NOTE | 2017-02-13 10:13 | ED MED RECONCILIATION SUMMARY ---
Patient: PHILLIP GAUTAM Medication Reconciliation Report [facility] VisitID: [id number] [address] [place] [address] 31y, M Registration Date/Time: 02/12/2017 Weight: 74.8 kg Height/Length: 68 in. BMI: 25.1 ALLERGIES: Peanuts The patient's Home Medications are listed below: NONE. The source(s) of the original Home Medication information: Not obtained. The following Medications were given to the patient in the Emergency Department: None. The following Medications were prescribed to the patient: Zofran (orally disintegrating tablets) 4 mg: take 1 orally. Dispense ten (10). No refill. Substitution is permissible. -- Stefan Verde Dr.
--- NOTE | 2017-02-13 10:13 | ED DISCHARGE INSTRUCTIONS ---
Patient: PHILLIP GAUTAM General Instructions [facility] VisitID: [id number] [place] [address] 31y, M Registration Date/Time: 02/12/2017 Substance abuse- alcohol. Alcohol intoxication. INSTRUCTIONS Stay with responsible adult family member (or other responsible adult). No alcohol. Seek medical help to quit drinking. Warnings: GENERAL WARNINGS: Return or contact your physician immediately if your condition worsens or changes unexpectedly, if not improving as expected, or if other problems arise. Follow-up: Follow up with your doctor. Call for the next available appointment. Understanding of the discharge instructions verbalized by patient. ADDITIONAL INFORMATION Alcohol Intoxication Alcohol intoxication occurs when you drink alcohol faster than your liver can remove it from your system. Alcohol intoxication affects your judgment and coordination. Very high blood alcohol levels can cause coma, very slow breathing and even . If you drink alcohol every day, this may gradually cause permanent damage to your liver, brain, heart, pancreas and other organs. Alcohol use during may cause permanent damage to the growing baby. Home Care: Do not drink any more alcohol. DO NOT DRIVE until all effects of the alcohol have worn off. Get lots of rest over the next few days. Drink plenty of water and other non-alcoholic liquids. Try to eat regular meals. If you have been drinking heavily on a daily basis, you may go through alcohol withdrawl. This is also called the shakes or DTs. The usual symptoms last 3 to 4 days and may include nervousness, shakiness, nausea, sweating or sleeplessness. During this time, it is best that you stay with family or friends who can help and support you. You can also admit yourself to a residential detox program. If your symptoms are severe, contact your doctor for medicines to help. Follow Up: If alcohol is causing a problem in your life, these and other organizations can help you: Alcoholics Anonymous offers support through a self-help fellowship. There are no dues or fees. See the Yellow Pages and call for time and place of meetings. www.aa.org [employer] offers support to families of alcohol users. 202.291.7027 www.al-anon.org National [place] On Alcoholism And Drug Dependence 108-034-9724 www.ncadd.org There are also inpatient or residential alcohol detox programs. Check the Internet or phonebook Yellow Pages under Drug Abuse & Treatment Centers. Get Prompt Medical Attention if any of the following occur: there) You have been given the following additional information: Alcohol Intoxication Stay with responsible adult family member (or other responsible adult). (Electronically signed by Geronimo Clark MD 02/13/2017 10:12) Adjustment disorder with disturbance of conduct (acute). Alcohol intoxication (acute). INSTRUCTIONS Warnings: GENERAL WARNINGS: Return or contact your physician immediately if your condition worsens or changes unexpectedly, if not improving as expected, or if other problems arise. Specifically return if pain, vomiting, bleeding, breathing difficulty or fever. Prescription Medications: Zofran (orally disintegrating tablets) 4 mg: take 1 orally. Dispense ten (10). No refill. Substitution is permissible. Follow-up: Return to the emergency department as needed. Follow up with your doctor in three days. Reason for referral: recheck today's concerns. Summary of care provided to patient via paper. Screening today revealed the patient's blood pressure to be in the normal range. The patient should follow up with a primary care provider for blood pressure management. Understanding of the discharge instructions verbalized by patient. ADDITIONAL INFORMATION Alcohol Intoxication Alcohol intoxication occurs when you drink alcohol faster than your liver can remove it from your system. Alcohol intoxication affects your judgment and coordination. Very high blood alcohol levels can cause coma, very slow breathing and even . If you drink alcohol every day, this may gradually cause permanent damage to your liver, brain, heart, pancreas and other organs. Alcohol use during may cause permanent damage to the growing baby. Home Care: Do not drink any more alcohol. DO NOT DRIVE until all effects of the alcohol have worn off. Get lots of rest over the next few days. Drink plenty of water and other non-alcoholic liquids. Try to eat regular meals. If you have been drinking heavily on a daily basis, you may go through alcohol withdrawl. This is also called the shakes or DTs. The usual symptoms last 3 to 4 days and may include nervousness, shakiness, nausea, sweating or sleeplessness. During this time, it is best that you stay with family or friends who can help and support you. You can also admit yourself to a residential detox program. If your symptoms are severe, contact your doctor for medicines to help. Follow Up: If alcohol is causing a problem in your life, these and other organizations can help you: Alcoholics Anonymous offers support through a self-help fellowship. There are no dues or fees. See the Yellow Pages and call for time and place of meetings. www.aa.org [employer] offers support to families of alcohol users. 275.577.2049 www.al-anon.org National [place] On Alcoholism And Drug Dependence 090-450-3782 www.ncadd.org There are also inpatient or residential alcohol detox programs. Check the Internet or phonebook Yellow Pages under Drug Abuse & Treatment Centers. Get Prompt Medical Attention if any of the following occur: there) Adjustment Disorder An adjustment disorder is a condition that results from having a hard time coping with the normal stresses of life. You may feel you have too much to do and cant get it all done. These feelings may be triggered by divorce, job loss, someone you know dying, or by a positive event like getting a new job or getting . These feelings may interfere with your relationships at home and at work. With this condition, it is common to feel sad, guilty, hopeless and restless. These feelings may continue for weeks or months. It can be helpful to identify what is causing the additional stress and takes steps to get extra support. If new stressful events do not occur, it is likely that you will start feeling better within six months. Home Care: If you have been given a prescription for medicine, take it as directed. It helps to talk about your feelings and thoughts with family or friends that understand and support you. Follow Up with your doctor or therapist as advised by our staff. Let them know if this condition lasts more than six months without sign of improvement. For more information, contact the National [place] on Mental Illness at 633-209-9987 or visit www.yelena.org. Get Prompt Medical Attention if any of the following occur: Worsening depression or anxiety Feeling out of control Thoughts of harming yourself or another Being unable to care for yourself Ondansetron Oral disintegrating tablet What is this medicine? ONDANSETRON (on JELLY se meka) is used to treat nausea and vomiting caused by chemotherapy. It is also used to prevent or treat nausea and vomiting after surgery. How should I use this medicine? These tablets are made to dissolve in the mouth. Do not try to push the tablet through the foil backing. With dry hands, peel away the foil backing and gently remove the tablet. Place the tablet in the mouth and allow it to dissolve, then swallow. While you may take these tablets with water, it is not necessary to do so. Talk to your aviation manager regarding the use of this medicine in children. Special care may be needed. What side effects may I notice from receiving this medicine? Side effects that you should report to your doctor or health care team assistant as soon as possible: allergic reactions like skin rash, itching or hives, swelling of the face, lips, or tongue breathing problems dizziness fast or irregular heartbeat feeling faint or lightheaded, falls fever and chills swelling of the hands and feet tightness in the chest Side effects that usually do not require medical attention (report to your doctor or health care team assistant if they continue or are bothersome): constipation or diarrhea headache What may interact with this medicine? Do not take this medicine with any of the following medications: -apomorphine -cisapride -dofetilide -dronedarone -pimozide -thioridazine -ziprasidone This medicine may also interact with the following medications: -carbamazepine -phenytoin -rifampicin -tramadol -other medicines that prolong the QT interval (cause an abnormal heart rhythm) What if I miss a dose? If you miss a dose, take it as soon as you can. If it is almost time for your next dose, take only that dose. Do not take double or extra doses. Where should I keep my medicine? Keep out of the reach of children. Store between 2 and 30 degrees C (36 and 86 degrees F). Throw away any unused medicine after the expiration date. What should I tell my health care provider before I take this medicine? They need to know if you have any of these conditions: heart disease history of irregular heartbeat liver disease low levels of magnesium or potassium in the blood an unusual or allergic reaction to ondansetron, granisetron, other medicines, foods, dyes, or preservatives or trying to get breast-feeding What should I watch for while using this medicine? Check with your doctor or health care team assistant as soon as you can if you have any sign of an allergic reaction. You have been given the following additional information: Alcohol Intoxication Adjustment Disorder Ondansetron Oral disintegrating tablet (Electronically signed by Stefan Verde Dr. 02/13/2017 0:39)
--- NOTE | 2017-02-13 10:13 | ED MAR SUMMARY ---
..... Medication Administration Record [facility] [address] [place], [place] [id number] Patient: PHILLIP GAUTAM Visit ID: [id number] 31y, M Weight: 74.8 kg Height/Length: 68 in BMI: 25.1 ALLERGIES: Peanuts
--- NOTE | 2017-02-13 10:13 | ED MED RECONCILIATION SUMMARY ---
Patient: PHILLIP GAUTAM Medication Reconciliation Report VisitID: [id number] [address] [place] [address] 31y, M Registration Date/Time: 02/12/2017 Weight: 74.8 kg Height/Length: 68 in. BMI: 25.1 ALLERGIES: Peanuts The patient's Home Medications are listed below: NONE. The source(s) of the original Home Medication information: Not obtained. The following Medications were given to the patient in the Emergency Department: None. The following Medications were prescribed to the patient: Zofran (orally disintegrating tablets) 4 mg: take 1 orally. Dispense ten (10). No refill. Substitution is permissible. -- Stefan Verde Dr.
--- NOTE | 2017-02-13 10:13 | ED DISCHARGE INSTRUCTIONS ---
Patient: PHILLIP GAUTAM General Instructions [facility] VisitID: [id number] [place] [address] 31y, M Registration Date/Time: 02/12/2017 Substance abuse- alcohol. Alcohol intoxication. INSTRUCTIONS Stay with responsible adult family member (or other responsible adult). No alcohol. Seek medical help to quit drinking. Warnings: GENERAL WARNINGS: Return or contact your physician immediately if your condition worsens or changes unexpectedly, if not improving as expected, or if other problems arise. Follow-up: Follow up with your doctor. Call for the next available appointment. Understanding of the discharge instructions verbalized by patient. ADDITIONAL INFORMATION Alcohol Intoxication Alcohol intoxication occurs when you drink alcohol faster than your liver can remove it from your system. Alcohol intoxication affects your judgment and coordination. Very high blood alcohol levels can cause coma, very slow breathing and even . If you drink alcohol every day, this may gradually cause permanent damage to your liver, brain, heart, pancreas and other organs. Alcohol use during may cause permanent damage to the growing baby. Home Care: Do not drink any more alcohol. DO NOT DRIVE until all effects of the alcohol have worn off. Get lots of rest over the next few days. Drink plenty of water and other non-alcoholic liquids. Try to eat regular meals. If you have been drinking heavily on a daily basis, you may go through alcohol withdrawl. This is also called the shakes or DTs. The usual symptoms last 3 to 4 days and may include nervousness, shakiness, nausea, sweating or sleeplessness. During this time, it is best that you stay with family or friends who can help and support you. You can also admit yourself to a residential detox program. If your symptoms are severe, contact your doctor for medicines to help. Follow Up: If alcohol is causing a problem in your life, these and other organizations can help you: Alcoholics Anonymous offers support through a self-help fellowship. There are no dues or fees. See the Yellow Pages and call for time and place of meetings. www.aa.org [employer] offers support to families of alcohol users. 379.268.1967 www.al-anon.org National [place] On Alcoholism And Drug Dependence 360-888-7658 www.ncadd.org There are also inpatient or residential alcohol detox programs. Check the Internet or phonebook Yellow Pages under Drug Abuse & Treatment Centers. Get Prompt Medical Attention if any of the following occur: there) You have been given the following additional information: Alcohol Intoxication Stay with responsible adult family member (or other responsible adult). (Electronically signed by Geronimo Clark MD 02/13/2017 10:12) Adjustment disorder with disturbance of conduct (acute). Alcohol intoxication (acute). INSTRUCTIONS Warnings: GENERAL WARNINGS: Return or contact your physician immediately if your condition worsens or changes unexpectedly, if not improving as expected, or if other problems arise. Specifically return if pain, vomiting, bleeding, breathing difficulty or fever. Prescription Medications: Zofran (orally disintegrating tablets) 4 mg: take 1 orally. Dispense ten (10). No refill. Substitution is permissible. Follow-up: Return to the emergency department as needed. Follow up with your doctor in three days. Reason for referral: recheck today's concerns. Summary of care provided to patient via paper. Screening today revealed the patient's blood pressure to be in the normal range. The patient should follow up with a primary care provider for blood pressure management. Understanding of the discharge instructions verbalized by patient. ADDITIONAL INFORMATION Alcohol Intoxication Alcohol intoxication occurs when you drink alcohol faster than your liver can remove it from your system. Alcohol intoxication affects your judgment and coordination. Very high blood alcohol levels can cause coma, very slow breathing and even . If you drink alcohol every day, this may gradually cause permanent damage to your liver, brain, heart, pancreas and other organs. Alcohol use during may cause permanent damage to the growing baby. Home Care: Do not drink any more alcohol. DO NOT DRIVE until all effects of the alcohol have worn off. Get lots of rest over the next few days. Drink plenty of water and other non-alcoholic liquids. Try to eat regular meals. If you have been drinking heavily on a daily basis, you may go through alcohol withdrawl. This is also called the shakes or DTs. The usual symptoms last 3 to 4 days and may include nervousness, shakiness, nausea, sweating or sleeplessness. During this time, it is best that you stay with family or friends who can help and support you. You can also admit yourself to a residential detox program. If your symptoms are severe, contact your doctor for medicines to help. Follow Up: If alcohol is causing a problem in your life, these and other organizations can help you: Alcoholics Anonymous offers support through a self-help fellowship. There are no dues or fees. See the Yellow Pages and call for time and place of meetings. www.aa.org [employer] offers support to families of alcohol users. 426.212.5874 www.al-anon.org National [place] On Alcoholism And Drug Dependence 368-185-6517 www.ncadd.org There are also inpatient or residential alcohol detox programs. Check the Internet or phonebook Yellow Pages under Drug Abuse & Treatment Centers. Get Prompt Medical Attention if any of the following occur: there) Adjustment Disorder An adjustment disorder is a condition that results from having a hard time coping with the normal stresses of life. You may feel you have too much to do and cant get it all done. These feelings may be triggered by divorce, job loss, someone you know dying, or by a positive event like getting a new job or getting . These feelings may interfere with your relationships at home and at work. With this condition, it is common to feel sad, guilty, hopeless and restless. These feelings may continue for weeks or months. It can be helpful to identify what is causing the additional stress and takes steps to get extra support. If new stressful events do not occur, it is likely that you will start feeling better within six months. Home Care: If you have been given a prescription for medicine, take it as directed. It helps to talk about your feelings and thoughts with family or friends that understand and support you. Follow Up with your doctor or therapist as advised by our staff. Let them know if this condition lasts more than six months without sign of improvement. For more information, contact the National [place] on Mental Illness at 242-760-9015 or visit www.yelena.org. Get Prompt Medical Attention if any of the following occur: Worsening depression or anxiety Feeling out of control Thoughts of harming yourself or another Being unable to care for yourself Ondansetron Oral disintegrating tablet What is this medicine? ONDANSETRON (on JELLY se meka) is used to treat nausea and vomiting caused by chemotherapy. It is also used to prevent or treat nausea and vomiting after surgery. How should I use this medicine? These tablets are made to dissolve in the mouth. Do not try to push the tablet through the foil backing. With dry hands, peel away the foil backing and gently remove the tablet. Place the tablet in the mouth and allow it to dissolve, then swallow. While you may take these tablets with water, it is not necessary to do so. Talk to your cubing machine tender regarding the use of this medicine in children. Special care may be needed. What side effects may I notice from receiving this medicine? Side effects that you should report to your doctor or health menagerie caretaker as soon as possible: allergic reactions like skin rash, itching or hives, swelling of the face, lips, or tongue breathing problems dizziness fast or irregular heartbeat feeling faint or lightheaded, falls fever and chills swelling of the hands and feet tightness in the chest Side effects that usually do not require medical attention (report to your doctor or health menagerie caretaker if they continue or are bothersome): constipation or diarrhea headache What may interact with this medicine? Do not take this medicine with any of the following medications: -apomorphine -cisapride -dofetilide -dronedarone -pimozide -thioridazine -ziprasidone This medicine may also interact with the following medications: -carbamazepine -phenytoin -rifampicin -tramadol -other medicines that prolong the QT interval (cause an abnormal heart rhythm) What if I miss a dose? If you miss a dose, take it as soon as you can. If it is almost time for your next dose, take only that dose. Do not take double or extra doses. Where should I keep my medicine? Keep out of the reach of children. Store between 2 and 30 degrees C (36 and 86 degrees F). Throw away any unused medicine after the expiration date. What should I tell my health care provider before I take this medicine? They need to know if you have any of these conditions: heart disease history of irregular heartbeat liver disease low levels of magnesium or potassium in the blood an unusual or allergic reaction to ondansetron, granisetron, other medicines, foods, dyes, or preservatives or trying to get breast-feeding What should I watch for while using this medicine? Check with your doctor or health menagerie caretaker as soon as you can if you have any sign of an allergic reaction. You have been given the following additional information: Alcohol Intoxication Adjustment Disorder Ondansetron Oral disintegrating tablet (Electronically signed by Stefan Verde Dr. 02/13/2017 0:39)
== END 2017-02-13 00:35 | disposition home or self-care (01) ==
LOC: ED SRH 13:47
DX: F10.129 Alcohol abuse with intoxication, unspecified (principal); F12.10 Cannabis abuse, uncomplicated
CPT/HCPCS: 90004; 90074; 90100; 92010; 92235; 92530; 92760; 92761; 92762; 92763; 92764; 92765; 92766; 92767; 95059